=== PATIENT | male | born 1960 | race Caucasian/White ===

== ENCOUNTER 2019-11-16 09:00 | Outpatient (RCR) | payer BC, SELFPAY ==
[2019-10-22 13:00] VITALS: BP_SYST 150
--- NOTE | 2019-10-22 14:10 | PTOPEVAL ---
PHYSICAL THERAPY EVALUATION AND PLAN OF CARE 10-22-2019 The PT evaluation was completed today for Mr. Avelar, for the diagnosis of L shoulder instability. His plan of treatment is established for 1x/week for 6 weeks. He is motivated and will perform his home exercises as instructed, but they will need to be progressed from AAROM to strengthening exercises, with use of modalities PRN for pain control. Thank you for referring Lee to [facility]. Please review, sign, date and return this plan of care MUKESH. I agree with and certify that the following plan of care is medically necessary. Referring Physician Date Attending Provider: Daniel Rosa MD *PT Outpatient Evaluation Start: 10/22/19 13:07 Document 10/22/19 13:00 ELIZABETH (Rec: 10/22/19 13:55 ELIZABETH [id number]) Therapy Assessment Status Assessment Status Assessment Status Evaluation Outpatient Past Medical History Neurological History Hx Neurological Disorders No Significant History Cardiovascular History Hx Cardiac Disorders No Significant History Respiratory History Hx Respiratory Disorders No Significant History Gastrointestinal History Hx Gastroesophageal Reflux Disease Yes Musculoskeletal History Hx Joint Replacement Yes: R hip replacement '96 Endocrine History Hx Endocrine Disorders No Significant History Other History Hx Other Surgeries Yes: appendectomy Evaluation Information Problem Diagnosis L shoulder pain Onset Sep 10, 2019 Subjective Information fell when standing on chair, Query Text:As Reported By Patient/ stepped off and foot landed in Family hole in ground, landed directly onto L shoulder; have improved since injection; not been doing much with arm -doing gentle movements of arm ; Diagnostic Tests X-Rays For This Problem Yes MRI For This Problem Yes: partial tear biceps&full thickness tear supraspinatus& infraspinatus Previous Treatments Previous Treatments For This Problem had shoulder injection ; Prior Level of Function Activity Level (Last 3 Months) Occupation own restaurants- active Hand Dominance Right Activity of Daily Living Ability Independent Indoor/Home Mobility Independent Community Mobility Independent Stairs Ability Independent Functional Cognition (Planning, Shopping Independent , Taking Medications) Medications Home Meds (Include: OTC, RX, Vitamins, aleve- PRN; Herbals, Dose, Route,and Frequency) Query Text:Home Med Entries Will No Longer Recall From Past Visits. Home Meds Must Be Re-entered With Each Visit.
--- NOTE | 2019-10-22 14:35 | PCPTNOTE ---
completed [facility] intake form for authorization for PT treatment and gave to office staff for faxing.
--- NOTE | 2019-12-08 13:32 | PCPTNOTE ---
PHYSICAL THERAPY DISCHARGE 12-08-2019 Attending Provider: Daniel Rosa MD Patient:Lee Avelar I Date of :1960 Mr. Avelar has received 5 Physical Therapy sessions, from October 22 to , for the diagnosis of chronic L rotator cuff deficiency. He has not returned for any further treatments since 11/16/2019, therefore he will be discharged from therapy at this time. The goals were not assessed. Thank you for referring Lee to [facility]. Please review, sign, date and return this discharge summary MUKESH. I have been updated about the patient's current status and I agree with discharge from the above service at this time. Referring Physician Date
== END 2019-12-08 14:48 | disposition home or self-care (01) ==
LOC: ANHPT 09:00
PROVIDERS: PCP Family Medicine; Visit Provider Orthopaedic Surgery
DX: M25.312 Other instability, left shoulder (principal)
CPT/HCPCS: 97110; 97140; 97161

== ENCOUNTER 2020-08-05 07:02 | Outpatient (NON) | payer BC, SELFPAY ==
[2020-08-05 22:31] LABS: SARS-CoV-2 RNA PCR Positive
== END 2020-08-05 07:03 ==
PROVIDERS: PCP Family Medicine; Visit Provider Physician Assistant
DX: U07.1 COVID-19 (principal)
CPT/HCPCS: 87635; C9803; U0003

== ENCOUNTER 2021-06-19 02:05 | Day surgery (SDC) | payer BC, SELFPAY ==
[2021-06-07 13:01] VITALS: BMI 29.2
--- NOTE | 2021-06-16 15:47 | WPDANESEPPF ---
Anes - Initial Pre Proc Eval Procedure: Operation Date: 06/19/21 08:30 Proposed Procedures p Screening Colonoscopy - Odin Pederson MD Date/Time: 06/16/21 15:47 Surgeon: Odin Pederson MD Pre Op Diagnosis: neoplasm screening Patient Data Age: 60 Gender: M Height: 1.83 m Weight: 97.8 kg Allergies Allergy/AdvReac Type Severity Reaction Status Date / Time No Known Allergies Allergy Mild Verified 06/19/21 07:52 Home Medications Medication Instructions Recorded Confirmed Type No Home Medications 01/04/21 06/19/21 History Patient hx anesthesia problems: none Family hx anesthesia problems: none [facility] Past Medical History Medical History (Updated 06/19/21 @ 07:57 by Odin Pederson MD) GERD (gastroesophageal reflux disease) Surgical History Surgical History History of appendectomy (~1975) History of hip replacement (~1995) Social History Social History (Updated 03/22/21 @ 14:51 by Kassy Medina CMA) Smoking status: Never smoker Alcohol intake: current Drinks per week: 12 Alcohol use details: approximately 12 pack of beer weekly Substance use: never Substance use type: does not use Living arrangements: with family Additional living arrangements comments: lives with spouse Gender identity (if verbalized by the patient): Male Sexual Orientation (if Verbalized by the Patient): Straight or Heterosexual Spiritual care concerns: No Anes - Eval Final PreProcedure Day of Procedure 06/16/21 15:47 Patient weight: overweight Heart: regular rate and rhythm Lungs: clear to auscultation and normal air movement Airway: Mallampati scale class II Neurological: alert and oriented Last oral intake: >/= 8 hours ASA classification: II Emergent: no Anesthetic plan: proceed Anesthesia type and monitoring: general GIVS and standard monitoring Informed Consent: The patient's anesthetic plan and its attendant risks and benefits were discussed with the patient/family/POA. Questions were solicited and answers provided to the satisfaction of the patient/family/POA.
[2021-06-19 07:53] VITALS: BP 143/81; PULSE 62; RESP 16; TEMP 35.8; O2SAT 99
--- NOTE | 2021-06-19 07:56 | WPDGICN ---
Assessment and Plan Assessment and plan (1) Encounter for screening colonoscopy: Code(s): Z12.11 - Encounter for screening for malignant neoplasm of colon Status: Acute Assessment and Plan: Patient presents for screening colonoscopy today. Appears to be at average risk for colon polyps. GI Consult Note Consult date/time: 06/19/21 07:56 HPI: Saúl Avelar is a 60 year old male Presents for neoplasia screening. Patient reports his weight appetite bowel movements are normal. He denies abdominal pain. He has had no bleeding. Family history is noncontributory. His last colonoscopy for screening purposes was 2009. Patient presents today for screening colonoscopy. Review of Systems Review of Systems: All systems reviewed & are unremarkable except as noted in HPI and below PMFSH Past Medical History Medical History (Updated 06/19/21 @ 07:57 by Odin Pederson MD) GERD (gastroesophageal reflux disease) Surgical History Surgical History History of appendectomy (~1975) History of hip replacement (~1995) Social History Social History (Updated 03/22/21 @ 14:51 by Kassy Medina CMA) Smoking status: Never smoker Alcohol intake: current Drinks per week: 12 Alcohol use details: approximately 12 pack of beer weekly Substance use: never Substance use type: does not use Living arrangements: with family Additional living arrangements comments: lives with spouse Gender identity (if verbalized by the patient): Male Sexual Orientation (if Verbalized by the Patient): Straight or Heterosexual Spiritual care concerns: No Meds Home Medications and Allergies Home Medications Medication Instructions Recorded Confirmed Type No Home Medications 01/04/21 06/19/21 History Allergies Allergy/AdvReac Type Severity Reaction Status Date / Time No Known Allergies Allergy Mild Verified 06/19/21 07:52 Exam Narrative: Physical exam reveals patient to be a alert. Vital signs stable. HEENT exam is unremarkable. Patient is anicteric. Lungs are clear to auscultation and percussion. Heart is without murmur or extra sounds. Abdominal exam bowel sounds are present soft nontender with no organomegaly. Digital external rectal exam is normal.
[2021-06-19] MEDS: LACTATED RINGERS 1,000 ML 150 ML IV CONT (08:05)
[2021-06-19 08:43] VITALS: BP 111/78; PULSE 64; RESP 19; O2SAT 97
[2021-06-19 08:53] VITALS: BP 129/89; PULSE 61; RESP 17; O2SAT 98
[2021-06-19 09:03] VITALS: BP 127/91; PULSE 55; RESP 18; O2SAT 99
== END 2021-06-19 09:22 | disposition home or self-care (01) ==
PROVIDERS: PCP Family Medicine; Visit Provider Internal Medicine Gastroenterology
PROC: 0DJD8ZZ Inspection of Lower Intestinal Tract, Via Natural or Artificial Opening Endoscopic (ICD-10-PCS; CPT 45378; principal; 2021-06-19 08:30)
DX: Z12.11 Encounter for screening for malignant neoplasm of colon (principal); K64.8 Other hemorrhoids; K57.30 Diverticulosis of large intestine without perforation or abscess without bleeding; K21.9 Gastro-esophageal reflux disease without esophagitis
CPT/HCPCS: 45378; J2704; J7120

== ENCOUNTER 2022-10-11 08:41 | Outpatient (CLI) | payer BC, SELFPAY ==
[2022-10-11 18:58] LABS: Basophils Percent Auto 0.7 % (0.2-1.2); Eosinophils Absolute Auto 0.1 K/mm3 (0-0.3); Eosinophils Percent Auto 1.6 % (0-4.4); Hemoglobin 15.3 g/dL (14.0-18.0); Immature Granulocyte Absolute 0.01 K/mm3 (0.00-0.031); Immature Granulocyte Percent A 0.2 % (0-0.5); Lymphocytes Absolute Auto 0.97 K/mm3 (0.9-3.2); Lymphocytes Percent Auto 17.3 % (18.3-44.2); Mean Corpuscular HGB Conc 34.8 g/dl (32-36); Mean Corpuscular Hemoglobin 30.9 pg (26-34); Mean Corpuscular Volume 88.9 fl (80-100); Mean Platelet Volume 12.3 fl (7.4-10.4); Monocytes Absolute Auto 0.5 K/mm3 (0.1-0.6); Monocytes Percent Auto 8.2 % (2.6-8.5); Platelet Count Result 134 k/mm3 (150-375); Red Blood Count 4.95 M/mm3 (4.6-6.20); Red Cell Distribution Width 12.5 % (11.5-14.5); White Blood Count 5.6 K/mm3 (4.5-10.0)
[2022-10-11 19:47] LABS: Hemoglobin A1C 4.8 % (<5.7)
[2022-10-11 20:11] LABS: Alanine Aminotransferase 22 U/L (6-50); Albumin Level 4.2 g/dL (3.5-5.1); Alkaline Phosphatase 57 U/L (38-126); Anion Gap 5 mmol/L (8-16); Aspartate Amino Transferase 21 U/L (17-59); Bilirubin,Total 0.7 mg/dL (0.2-1.3); Blood Urea Nitrogen 15 mg/dL (9-20); Calcium 8.9 mg/dL (8.4-10.2); Carbon Dioxide 31 mmol/L (22-30); Chloride 106 mmol/L (98-107); Cholesterol 197 mg/dL (0-200); Estimated Glomerular Filt Rate > 60; Glucose 110 mg/dL (65-110); HDL Direct 37 mg/dL; Potassium 4.4 mmol/L (3.4-5.0); Sodium 142 mmol/L (137-145); Triglycerides 174 mg/dL (<150)
[2022-10-11 20:22] LABS: LDL Cholesterol Direct 112 mg/dL
[2022-10-11 20:41] LABS: Prostate Specific Antigen 0.3 ng/mL (< OR = 4.0)
== END 2022-10-11 08:42 | disposition home or self-care (01) ==
LOC: ANHGOSHLAB 08:43
PROVIDERS: PCP Emergency Medicine; Visit Provider Emergency Medicine
DX: Z00.00 Encounter for general adult medical examination without abnormal findings (principal); Z12.5 Encounter for screening for malignant neoplasm of prostate
CPT/HCPCS: 36415; 80053; 80061; 83036; 84153; 85025; G0103

== ENCOUNTER 2023-10-04 09:17 | Outpatient (CLI) | payer BC, SELFPAY ==
[2023-10-04 12:29] LABS: Alanine Aminotransferase 26 U/L (6-50); Albumin Level 4.2 g/dL (3.5-5.1); Alkaline Phosphatase 58 U/L (38-126); Anion Gap 6 mmol/L (8-16); Aspartate Amino Transferase 39 U/L (17-59); Bilirubin,Total 0.6 mg/dL (0.2-1.3); Blood Urea Nitrogen 11 mg/dL (9-20); Calcium 9.2 mg/dL (8.4-10.2); Carbon Dioxide 27 mmol/L (22-30); Chloride 106 mmol/L (98-107); Cholesterol 205 mg/dL (0-200); Estimated Glomerular Filt Rate > 60; Glucose 98 mg/dL (65-110); HDL Direct 27 mg/dL; Potassium 4.4 mmol/L (3.4-5.0); Sodium 139 mmol/L (137-145); Triglycerides 315 mg/dL (<150)
[2023-10-04 12:40] LABS: LDL Cholesterol Direct 105 mg/dL
[2023-10-04 13:00] LABS: Prostate Specific Antigen 0.5 ng/mL (< OR = 4.0)
[2023-10-04 13:20] LABS: Hemoglobin A1C 4.9 % (<5.7)
== END 2023-10-04 09:18 | disposition home or self-care (01) ==
LOC: ANHGOSHLAB 09:19
PROVIDERS: PCP Emergency Medicine; Visit Provider Emergency Medicine
DX: E78.2 Mixed hyperlipidemia (principal); Z12.5 Encounter for screening for malignant neoplasm of prostate; R73.03 Prediabetes
CPT/HCPCS: 36415; 80053; 80061; 83036; 84153; G0103

== ENCOUNTER 2024-06-26 11:40 | Outpatient (CLI) | payer BC, SELFPAY ==
--- NOTE | ~2024-06-26 | XR_ITS ---
Right Knee Technique: AP, lateral, and sunrise views were obtained. Clinical History: Pain Findings: No acute fracture or dislocation is seen. Osseous alignment is anatomic. There is prominent fragmentation and ossification about the tibial tubercle, compatible with old [place]-Schlatter's dis ease. Joint spaces are preserved without degenerative or erosive change. There is mild soft tissue ed ver[place]/soft tissue thickening superficially at the infrapatellar region. No joint effusion is seen. Impression: [place]-Schlatter's disease. Soft tissue edema/thickening at the infrapatellar region. No acute fracture or dislocation. Reviewed, dictated and finalized at location . Impression: Old [place]-Schlatter's disease. Soft tissue edema/thickening at the infrapatellar region. No acute fracture or dislocation.
== END 2024-06-26 11:41 | disposition home or self-care (01) ==
LOC: GOSHIMG 11:41
PROVIDERS: PCP Emergency Medicine; Visit Provider Emergency Medicine
DX: M92.521 Juvenile osteochondrosis of tibia tubercle, right leg (principal); M79.89 Other specified soft tissue disorders
CPT/HCPCS: 73564

== ENCOUNTER 2024-07-01 13:16 | Outpatient (CLI) | payer BC, SELFPAY | END 2024-07-01 13:17 | disposition home or self-care (01) | LOC: ANHBWCAUD 13:16 | PROVIDERS: PCP Emergency Medicine; Visit Provider Emergency Medicine | DX: H91.90 Unspecified hearing loss, unspecified ear (principal) | CPT/HCPCS: 92557; 92567 ==

== ENCOUNTER 2024-12-22 09:32 | Outpatient (CLI) | payer MEDICARE, SELFPAY ==
[2024-12-22 13:27] LABS: Basophils Absolute Auto 0.1 K/mm3 (0.0-0.1); Basophils Percent Auto 0.8 % (0.2-1.2); Eosinophils Absolute Auto 0.1 K/mm3 (0-0.3); Eosinophils Percent Auto 1.4 % (0-4.4); Hematocrit 46.6 % (42.0-52.0); Immature Granulocyte Absolute 0.01 K/mm3 (0.00-0.031); Immature Granulocyte Percent A 0.2 % (0-0.5); Lymphocytes Absolute Auto 1.13 K/mm3 (0.9-3.2); Lymphocytes Percent Auto 17.9 % (18.3-44.2); Mean Corpuscular HGB Conc 34.3 g/dl (32-36); Mean Corpuscular Hemoglobin 31.4 pg (26-34); Mean Corpuscular Volume 91.6 fl (80-100); Mean Platelet Volume 11.8 fl (7.4-10.4); Monocytes Absolute Auto 0.5 K/mm3 (0.1-0.6); Monocytes Percent Auto 7.1 % (2.6-8.5); Neutrophils Absolute Auto 4.6 K/mm3 (1.3-6.7); Neutrophils Percent Auto 72.6 % (45.5-73.1); Platelet Count Result 146 k/mm3 (150-375); Red Blood Count 5.09 M/mm3 (4.6-6.20); Red Cell Distribution Width 12.2 % (11.5-14.5); White Blood Count 6.3 K/mm3 (4.5-10.0)
[2024-12-22 14:25] LABS: Vitamin D 25 Hydroxy 28.8 ng/mL
[2024-12-22 15:31] LABS: Hemoglobin A1C 4.9 % (<5.7)
[2024-12-22 15:40] LABS: Alanine Aminotransferase 40 U/L (6-50); Albumin Level 4.3 g/dL (3.5-5.1); Alkaline Phosphatase 61 U/L (38-126); Anion Gap 6 mmol/L (4-12); Aspartate Amino Transferase 55 U/L (17-59); Bilirubin,Total 0.6 mg/dL (0.2-1.3); Blood Urea Nitrogen 11 mg/dL (9-20); Calcium 9.2 mg/dL (8.4-10.2); Carbon Dioxide 30 mmol/L (22-30); Chloride 102 mmol/L (98-107); Cholesterol 211 mg/dL (0-200); Estimated Glomerular Filt Rate > 60; Glucose 102 mg/dL (65-110); HDL Direct 28 mg/dL; Sodium 138 mmol/L (137-145); Triglycerides 381 mg/dL (<150)
[2024-12-22 15:52] LABS: LDL Cholesterol Direct 103 mg/dL
[2024-12-22 16:14] LABS: Prostate Specific Antigen 0.4 ng/mL (< OR = 4.0)
== END 2024-12-22 09:33 | disposition home or self-care (01) ==
LOC: ANHGOSHLAB 09:33
PROVIDERS: PCP Family Medicine; Visit Provider Family Medicine
DX: D69.6 Thrombocytopenia, unspecified (principal); R73.9 Hyperglycemia, unspecified; E78.2 Mixed hyperlipidemia; E55.9 Vitamin D deficiency, unspecified; I10 Essential (primary) hypertension; E78.5 Hyperlipidemia, unspecified; E53.8 Deficiency of other specified B group vitamins; Z12.5 Encounter for screening for malignant neoplasm of prostate
CPT/HCPCS: 36415; 80053; 80061; 82306; 82607; 83036; 84153; 84443; 85025; G0103